=== PATIENT | female | born 1980 | race Caucasian/White ===

== ENCOUNTER 2017-05-07 12:34 | Emergency (ER) | payer OTHER ==
[~2017-05-07] VITALS: Ht 167.6 cm; Wt 105.0 kg
[~2017-05-07 12:34] MED LIST: CLON.1 PO; METH5SOL3 PO; PROM1SUP12 PR; PROM25TA5 PO
[2017-05-07 12:43] VITALS: BP 198/116; PULSE 99; RESP 16; TEMP 98.3; O2SAT 98
[2017-05-07 13:06] LABS: BILIRUBIN, URINE NEG (NEG); BLOOD, URINE MOD (NEG); GLUCOSE,URINE NEG (NEG); KETONE, URINE NEG (NEG); NITRITE,URINE NEG (NEG); PH, URINE 6.5 (5.0-8.5); URINE LEUKOCYTE ESTERASE NEG (NEG)
[2017-05-07] MEDS ORDERED: AMLO5TAB2 PO (13:09)
[2017-05-07] MEDS ORDERED: INDO50CA PO (13:09)
[2017-05-07] MEDS ORDERED: PROZ40CA PO (13:09)
[2017-05-07 13:12] LABS: URINE COLOR YELLOW (YELLW/STRAW)
[2017-05-07 13:13] LABS: HYALINE CAST, URINE 0-2 /lpf (RARE); MUCUS URINE OCC /lpf (OCC); TRANSITIONAL EPI CELLS, URINE 0-5 /hpf
[2017-05-07 13:14] LABS: AMORPHOUS SEDIMENT, URINE MOD
[2017-05-07] MEDS ORDERED: SODIUM CHLOR 0.9% 1000 ML INJ 1,000 ML IV SCH (13:14)
[2017-05-07] MEDS ORDERED: DICYCLOMINE HCL 20 MG/2 ML VIAL IM ONE (13:15)
[2017-05-07] MEDS ORDERED: SODIUM CHLORIDE 0.9% FLUSH 10 ML FLUSH IV FLUSH PRN (13:15)
[2017-05-07] MEDS ORDERED: ONDANSETRON HCL 4 MG/2 ML VIAL IVP ONE (13:15)
--- NOTE | 2017-05-07 13:23 | PD ---
HPI Chief Complaint: GI Complaint Time Seen by Provider: 12:49 Travel History International Travel<30 days: No Contact w/Intl Traveler<30days: No Traveled to known affect area: No History of Present Illness HPI 36 years old female complains of right low quadrant abdominal pain. Patient states that the pain started a week ago. Patient states that the pain is sharp pain localized to right lower quadrant of the abdomen. Patient denies pain radiation. Patient states that she has intermittent nausea vomiting and diarrhea. Patient states that she has black tarry stool for the past 2 days. Patient denies any fever chills. Patient states that she has several syncopal episodes for the past 2 days. Patient has history of PCOS. Patient was seen at [facility] days ago and had blood tests and pelvic ultrasound done. Patient was diagnosed with ovarian cyst. Patient was discharged home with prescription for Percocet. Patient states that she had persistent pain despite taking the Percocet. Patient also complained of increasing abdominal pain with urination and urinary frequency. Patient denies any vaginal discharge or bleeding. PFSH Past Medical History Depression: Yes Diminished Hearing: No Herniated Disk: Yes Hypertension: Yes Reproductive: Yes (POLYCYSTIC OVARIAN SYNDROME) ?: Unknown : 2 Para: 0 Miscarriage: 2 Past Surgical History Cholecystectomy: Yes Social History Alcohol Use: Yes (VERY RARELY) Tobacco Use: No Substance Use: No Allergies-Medications (Allergen,Severity, Reaction): Coded Allergies: aspirin (Unverified Allergy, Severe, VOMITING AND RASH, 05/07/17) ketorolac (Unverified Allergy, Severe, VOMITING AND RASH, 05/07/17) pentazocine (Unverified Allergy, Severe, HALLUCINATIONS, 05/07/17) tramadol (Unverified Allergy, Severe, VOMITING AND RASH, 05/07/17) Reported Meds & Prescriptions Reported Meds & Active Scripts Active Reported Indomethacin 50 Mg Cap 50 Mg PO TID Take with food, milk, or antacids to decrease stomach adverse effects. Amlodipine (Amlodipine Besylate) 5 Mg Tab 5 Mg PO DAILY Prozac (Fluoxetine HCl) 40 Mg Cap 40 Mg PO DAILY Review of Systems General / Constitutional: No: Fever Eyes: No: Visual changes HENT: No: Headaches Cardiovascular: No: Chest Pain or Discomfort Respiratory: No: Shortness of Breath Gastrointestinal: Positive: Nausea, Vomiting, Diarrhea, Abdominal Pain Genitourinary: No: Dysuria Musculoskeletal: No: Pain Skin: No Rash Neurologic: No: Weakness Psychiatric: No: Depression Endocrine: No: Polydipsia Hematologic/Lymphatic: No: Easy Bruising Physical Exam Narrative GENERAL: Well-nourished, well-developed patient. SKIN: Focused skin assessment warm/dry. HEAD: Normocephalic. EYES: No scleral icterus. No injection or drainage. NECK: Supple, trachea midline. No JVD or lymphadenopathy. CARDIOVASCULAR: Regular rate and rhythm without murmurs, gallops, or rubs. RESPIRATORY: Breath sounds equal bilaterally. No accessory muscle use. GASTROINTESTINAL: Abdomen soft, nondistended. Patient has moderate tenderness and palpation right lower quadrant of the abdomen. No rebound tenderness. No mass. MUSCULOSKELETAL: No cyanosis, or edema. BACK: Nontender without obvious deformity. No CVA tenderness. Neurologic exam normal. Data Data Last Documented VS Vital Signs Date Time Temp Pulse Resp B/P (MAP) Pulse Ox O2 Delivery O2 Flow Rate FiO2 05/07/17 13:55 95 Room Air 05/07/17 12:43 98.3 99 16 198/116 (143) Orders Orders Urinalysis - C+S If Indicated (05/07/17 12:45) Ed Urine Pregnancytest Poc (05/07/17 12:45) Complete Blood Count With Diff (05/07/17 13:14) Comprehensive Metabolic Panel (05/07/17 13:14) Lipase (05/07/17 13:14) Ct Abd/Pel W Iv Contrast(Rout) (05/07/17 13:14) Iv Access Insert/Monitor (05/07/17 13:14) Ecg Monitoring (05/07/17 13:14) Oximetry (05/07/17 13:14) Ondansetron Inj (Zofran Inj) (05/07/17 13:15) Sodium Chlor 0.9% 1000 Ml Inj (Ns 1000 M (05/07/17 13:14) Sodium Chloride 0.9% Flush (Ns Flush) (05/07/17 13:15) Dicyclomine Inj (Bentyl Inj) (05/07/17 13:15) Iohexol 350 Inj (Omnipaque 350 Inj) (05/07/17 14:22) Labs Laboratory Tests Test 05/07/17 12:50 05/07/17 13:20 Urine Collection Type CLEAN CATCH Urine Color YELLOW Urine Turbidity CLEAR Urine pH 6.5 Urine Specific [place] 1.025 Urine Protein NEG mg/dL Urine Glucose (UA) NEG mg/dL Urine Ketones NEG mg/dL Urine Occult Blood MOD Urine Nitrite NEG Urine Bilirubin NEG Urine Leukocyte Esterase NEG Urine Squamous Epithelial Cells 6-8 /hpf Urine Transitional Epithelial Cells 0-5 /hpf Urine Amorphous Sediment MOD Urine Hyaline Casts 0-2 /lpf Urine Mucus OCC /lpf Microscopic Urinalysis Comment CULT NOT INDICATED White Blood Count 5.8 TH/MM3 Red Blood Count 4.26 MIL/MM3 Hemoglobin 11.8 GM/DL Hematocrit 35.1 % Mean Corpuscular Volume 82.5 FL Mean Corpuscular Hemoglobin 27.8 PG Mean Corpuscular Hemoglobin Concent 33.7 % Red Cell Distribution Width 12.2 % Platelet Count 402 TH/MM3 Mean Platelet Volume 7.7 FL Neutrophils (%) (Auto) 77.9 % Lymphocytes (%) (Auto) 14.3 % Monocytes (%) (Auto) 4.5 % Eosinophils (%) (Auto) 0.9 % Basophils (%) (Auto) 2.4 % Neutrophils # (Auto) 4.5 TH/MM3 Lymphocytes # (Auto) 0.8 TH/MM3 Monocytes # (Auto) 0.3 TH/MM3 Eosinophils # (Auto) 0.1 TH/MM3 Basophils # (Auto) 0.1 TH/MM3 CBC Comment DIFF FINAL Differential Comment Blood Urea Nitrogen 19 MG/DL Creatinine 0.93 MG/DL Random Glucose 120 MG/DL Total Protein 8.9 GM/DL Albumin 3.9 GM/DL Calcium Level 9.3 MG/DL Alkaline Phosphatase 82 U/L Aspartate Amino Transf (AST/SGOT) 57 U/L Alanine Aminotransferase (ALT/SGPT) 55 U/L Total Bilirubin 0.5 MG/DL Sodium Level 136 MEQ/L Potassium Level 3.9 MEQ/L Chloride Level 102 MEQ/L Carbon Dioxide Level 23.7 MEQ/L Anion Gap 10 MEQ/L Estimat Glomerular Filtration Rate 68 ML/MIN Lipase 172 U/L [facility] Medical Decision Making Medical Screen Exam Complete: Yes Emergency Medical Condition: Yes Interpretation(s) 1414 p.m. CBC within normal limit. BUN 19. AST 57. ALT 55. UA is negative. [address] scan abdomen pelvis negative acute pathology. Differential Diagnosis Differential diagnosis including ovarian cyst, ovarian torsion, ectopic , colitis, appendicitis, UTI, pyelonephritis, nephrolithiasis. Narrative Course 36 years old female with right low quadrant abdominal pain. History of PCOS. Normal saline solution 1 25 cc an hour. Bentyl 20 mg IM. Zofran 4 mg IV. Diagnosis Primary Impression: Abdominal pain Qualified Codes: R10.31 - Right lower quadrant pain Patient Instructions: General Instructions Additional Instructions: Bentyl and Phenergan as directed. Follow-up with barrel dedenting machine operator specialist and airport control operator. Return if worse. Med/Other Pt SpecificInfo: Prescription(s) given Scripts Dicyclomine (Bentyl) 10 Mg Cap 10 MG PO TID Y for Bowel Management, #21 CAP 0 Refills Prov: Yoel Cho MD 05/07/17 Promethazine (Phenergan) 25 Mg Tablet 25 MG PO Q6H Y for NAUSEA OR VOMITING, #12 TAB 0 Refills Prov: Yoel Cho MD 05/07/17 Disposition: 01 DISCHARGE HOME Condition: Stable Yoel Cho MD May 07, 2017 13:23
[2017-05-07 13:38] LABS: AUTOMATED NEUTROPHIL # 4.5 TH/MM3 (1.8-7.7); BASOPHIL # 0.1 TH/MM3 (0-0.2); BASOPHIL % 2.4 % (0.0-2.0); EOSINOPHIL # 0.1 TH/MM3 (0-0.4); EOSINOPHIL % 0.9 % (0.0-4.0); HEMATOCRIT 35.1 % (35.0-46.0); HEMOGLOBIN 11.8 GM/DL (11.6-15.3); LYMPH % 14.3 % (9.0-44.0); LYMPHOCYTE # 0.8 TH/MM3 (1.0-4.8); MEAN CELL VOLUME 82.5 FL (80.0-100.0); MEAN CORPUSCULAR HEMOGLOBIN 27.8 PG (27.0-34.0); MEAN CORPUSCULAR HGB CONC 33.7 % (32.0-36.0); MEAN PLATELET VOLUME 7.7 FL (7.0-11.0); MONO % 4.5 % (0.0-8.0); MONOCYTE # 0.3 TH/MM3 (0-0.9); NEUT % 77.9 % (16.0-70.0); PLATELET COUNT 402 TH/MM3 (150-450); RED BLOOD COUNT 4.26 MIL/MM3 (4.00-5.30); RED CELL DISTRIBUTION WIDTH 12.2 % (11.6-17.2); WHITE BLOOD COUNT 5.8 TH/MM3 (4.0-11.0)
[2017-05-07 13:47] LABS: CHLORIDE 102 MEQ/L (98-107); SODIUM (NA) 136 MEQ/L (136-145)
[2017-05-07 13:50] LABS: CALCIUM 9.3 MG/DL (8.5-10.1)
[2017-05-07 13:51] LABS: ALBUMIN 3.9 GM/DL (3.4-5.0); BICARBONATE 23.7 MEQ/L (21.0-32.0); BLOOD UREA NITROGEN 19 MG/DL (7-18); GLUCOSE,RANDOM 120 MG/DL (74-106)
[2017-05-07 13:54] LABS: ALT (GPT) 55 U/L (10-53); AST (GOT) 57 U/L (15-37); CREATININE 0.93 MG/DL (0.50-1.00); GLOMERULAR FILTRATION RATE 68 ML/MIN (>89)
[2017-05-07 13:55] VITALS: O2SAT 95
[2017-05-07 13:55] LABS: TOTAL BILIRUBIN ADULT 0.5 MG/DL (0.2-1.0); TOTAL PROTEIN 8.9 GM/DL (6.4-8.2)
[2017-05-07 13:56] LABS: ALKALINE PHOSPHATASE 82 U/L (45-117)
[2017-05-07] MEDS ORDERED: IOHEXOL 350 MG/ML 10 ML VIAL (for RAD DIAG) IVCONTRAST ONE (14:22)
--- NOTE | 2017-05-07 14:34 | RADRPT ---
EXAM DATE/TIME: 05/07/2017 14:12 [facility] COMPARISON: CT ABDOMEN & PELVIS W CONTRAST, February 27, 2014, 21:59. INDICATIONS : Right lower abdomen pain IV CONTRAST: 100 cc Omnipaque 350 (iohexol) IV ORAL CONTRAST: No oral contrast ingested. RADIATION DOSE: 20.77 CTDIvol (mGy) ; Patient body habitus MEDICAL HISTORY : Hypertension. Polycystic ovarian syndrome. SURGICAL HISTORY : Rt Hip, labrial tear. ENCOUNTER: Initial ACUITY: 1 day PAIN SCALE: 6/10 LOCATION: Right lower quadrant TECHNIQUE: Volumetric scanning of the abdomen and pelvis was performed. Using automated exposure control and adjustment of the mA and/or kV according to patient size, radiation dose was kept as low as reasonably achievable to obtain optimal diagnostic quality images. DICOM format image data is av ailable electronically for review and comparison. FINDINGS: LOWER LUNGS: The visualized lower lungs are clear. LIVER: Homogeneous density without lesion. There is no dilation of the biliary tree was in place prior cholecystectomy SPLEEN: Normal size without lesion. PANCREAS: Within normal limits. KIDNEYS: Normal in size and shape. There is no stone or hydronephrosis. Stable bilateral low den sity lesions of the kidney cortex largest left kidney with 2.1 cm in size consistent with cysts ADRENAL GLANDS: Within normal limits. VASCULAR: There is no aortic aneurysm. BOWEL/MESENTERY: The stomach, small bowel, and colon demonstrate no acute abnormality. There is no free intraperitoneal air or fluid. What probably represents appendix is visualized to be normal wi th no inflammatory changes in the right lower quadrant. ABDOMINAL WALL: Within normal limits. RETROPERITONEUM: There is no lymphadenopathy. BLADDER: No wall thickening or mass. REPRODUCTIVE: Within normal limits. Bilateral ovaries visualize unchanged and normal INGUINAL: There is no lymphadenopathy or hernia. MUSCULOSKELETAL: Degenerative disc disease L5-S1 with air vacuum sign in protrusion left paracent ral into the anterior epidural space of air vacuum consistent with disc protrusion. CONCLUSION: Stable benign examination. Prior cholecystectomy. Bilateral renal cysts. Otherwise ne gordy Vance MD on May 07, 2017 at 14:26 Board Certified Radiologist. This report was verified electronically.
[2017-05-07] MEDS ORDERED: PROM25TA10 PO (14:45)
[2017-05-07] MEDS ORDERED: DICY10 PO (14:45)
[2017-05-07 14:59] VITALS: BP 178/86
== END 2017-05-07 15:00 | disposition home or self-care (01) ==
LOC: PHED 12:34
DX: R10.31 Right lower quadrant pain (principal); R19.7 Diarrhea, unspecified; R11.2 Nausea with vomiting, unspecified; E28.2 Polycystic ovarian syndrome; R55 Syncope and collapse; I10 Essential (primary) hypertension
CPT/HCPCS: 74177; 80053; 81001; 83690; 84703; 85025; 96361; 96372; 96374; 99284; J0500; J2405; J7030; Q9967

== ENCOUNTER 2017-07-08 06:04 | Emergency (ER) | payer OTHER ==
[~2017-07-08 06:04] MED LIST changes: +AMLO5TAB2 PO; -CLON.1 PO; +DICY10 PO; +INDO50CA PO; -METH5SOL3 PO; -PROM1SUP12 PR; +PROM25TA10 PO; -PROM25TA5 PO; +PROZ40CA PO
[2017-07-08 06:06] VITALS: BP 199/102; PULSE 115; RESP 16; TEMP 98.3; O2SAT 100
[2017-07-08] MEDS ORDERED: AMLO2.5T PO (06:45)
[2017-07-08] MEDS ORDERED: SODIUM CHLOR 0.9% 1000 ML INJ 1,000 ML IV SCH (07:11)
[2017-07-08] MEDS ORDERED: SODIUM CHLORIDE 0.9% FLUSH 10 ML FLUSH IV FLUSH PRN (07:15)
[2017-07-08] MEDS ORDERED: MORPHINE SULFATE 4 MG/ML INJ IV PUSH ONE (07:15)
[2017-07-08] MEDS ORDERED: ONDANSETRON HCL 4 MG/2 ML VIAL IVP ONE (07:15)
[2017-07-08 07:22] LABS: AMORPHOUS SEDIMENT, URINE RARE; BACTERIA, URINE RARE /hpf; BILIRUBIN, URINE NEG (NEG); BLOOD, URINE NEG (NEG); GLUCOSE,URINE TRACE mg/dL (NEG); KETONE, URINE NEG (NEG); MUCUS URINE FEW /lpf (OCC); NITRITE,URINE NEG (NEG); PH, URINE 7.5 (5.0-8.5); SQUAMOUS EPITHELIAL CELL URINE <1 /hpf (0-5); URINE COLOR LIGHT-YELLOW (YELLW/STRAW); URINE LEUKOCYTE ESTERASE NEG (NEG)
[2017-07-08 07:26] VITALS: RESP 18; O2SAT 97
--- NOTE | 2017-07-08 07:29 | PD ---
HPI Chief Complaint: Flank/Kidney Pain Time Seen by Provider: 07:05 Travel History International Travel<30 days: No Contact w/Intl Traveler<30days: No Traveled to known affect area: No History of Present Illness HPI Patient is a 37-year-old female who comes in complaining of abdominal pain that radiates to her right flank. She says the pain started 4 days ago. She reports nausea and vomiting. She denies fevers. She says she has pain in her bladder when she urinates and feels like she has to go more often. She says it feels similar to when she had a kidney stone in the past. She tried taking ibuprofen and Zofran at home without relief. Severity is mild to moderate. PFSH Past Medical History Depression: Yes Diminished Hearing: No Herniated Disk: Yes Hypertension: Yes Reproductive: Yes (POLYCYSTIC OVARIAN SYNDROME) ?: Not : 2 Para: 0 Miscarriage: 2 Past Surgical History Cholecystectomy: Yes Social History Alcohol Use: Yes (VERY RARELY) Tobacco Use: No Substance Use: No Allergies-Medications (Allergen,Severity, Reaction): Coded Allergies: aspirin (Unverified Allergy, Severe, VOMITING AND RASH, 05/07/17) ketorolac (Unverified Allergy, Severe, VOMITING AND RASH, 05/07/17) pentazocine (Unverified Allergy, Severe, HALLUCINATIONS, 05/07/17) tramadol (Unverified Allergy, Severe, VOMITING AND RASH, 05/07/17) Reported Meds & Prescriptions Reported Meds & Active Scripts Active Reported Amlodipine (Amlodipine Besylate) 2.5 Mg Tab 2.5 Mg PO BID Review of Systems Except as stated in HPI: all other systems reviewed are Neg General / Constitutional: No: Fever, Chills HENT: No: Headaches, Lightheadedness Cardiovascular: No: Chest Pain or Discomfort Respiratory: No: Shortness of Breath Gastrointestinal: Positive: Nausea, Vomiting, Abdominal Pain Genitourinary: Positive: Urgency, Frequency, Flank Pain Skin: No Rash, No Change in Pigmentation Neurologic: No: Weakness, Dizziness Physical Exam Narrative GENERAL: Awake and alert, in no acute distress. SKIN: Focused skin assessment warm/dry. HEAD: Atraumatic. Normocephalic. EYES: Pupils equal and round. No scleral icterus. ENT: Mucous membranes pink and moist. NECK: Trachea midline. No JVD. CARDIOVASCULAR: Regular rate and rhythm. No murmur appreciated. RESPIRATORY: No accessory muscle use. Clear to auscultation. Breath sounds equal bilaterally. GASTROINTESTINAL: Abdomen soft, nondistended. Right CVA tenderness. Tender to palpation of he suprapubic area as well as the RLQ. No rebound or guarding. MUSCULOSKELETAL: No obvious deformities. No clubbing. No cyanosis. No edema. NEUROLOGICAL: Awake and alert. No obvious cranial nerve deficits. Motor grossly within normal limits. Normal speech. PSYCHIATRIC: Appropriate mood and affect; insight and judgment normal. Data Data Last Documented VS Vital Signs Date Time Temp Pulse Resp B/P (MAP) Pulse Ox O2 Delivery O2 Flow Rate FiO2 07/08/17 09:01 97 18 167/76 (106) 99 07/08/17 07:26 Room Air 07/08/17 06:06 98.3 Orders Orders Urinalysis - C+S If Indicated (07/08/17 06:26) Complete Blood Count With Diff (07/08/17 07:11) Comprehensive Metabolic Panel (07/08/17 07:11) Lipase (07/08/17 07:11) Prothrombin Time / Inr (Pt) (07/08/17 07:11) Act Partial Throm Time (Ptt) (07/08/17 07:11) Ct Abd/Pel W/O Iv Contrast (07/08/17 07:11) Iv Access Insert/Monitor (07/08/17 07:11) Ecg Monitoring (07/08/17 07:11) Oximetry (07/08/17 07:11) Ondansetron Inj (Zofran Inj) (07/08/17 07:15) Sodium Chlor 0.9% 1000 Ml Inj (Ns 1000 M (07/08/17 07:11) Sodium Chloride 0.9% Flush (Ns Flush) (07/08/17 07:15) Ed Urine Pregnancytest Poc (07/08/17 07:11) Morphine Inj (Morphine Inj) (07/08/17 07:15) Acetamin-Hydrocod 325-5 Mg ([place] 5-325 (07/08/17 08:45) Metoclopramide Inj (Reglan Inj) (07/08/17 08:45) Us Pelvis Comp Call Center Recruiter/Non-Preg (07/08/17 ) Labs Laboratory Tests Test 07/08/17 06:45 07/08/17 07:21 Urine Color LIGHT-YELLOW Urine Turbidity CLEAR Urine pH 7.5 Urine Specific [place] 1.010 Urine Protein NEG mg/dL Urine Glucose (UA) TRACE mg/dL Urine Ketones NEG mg/dL Urine Occult Blood NEG Urine Nitrite NEG Urine Bilirubin NEG Urine Urobilinogen LESS THAN 2.0 MG/DL Urine Leukocyte Esterase NEG Urine RBC 2 /hpf Urine Squamous Epithelial Cells <1 /hpf Urine Amorphous Sediment RARE Urine Bacteria RARE /hpf Urine Mucus FEW /lpf Microscopic Urinalysis Comment CULT NOT INDICATED White Blood Count 7.9 TH/MM3 Red Blood Count 4.34 MIL/MM3 Hemoglobin 11.7 GM/DL Hematocrit 35.3 % Mean Corpuscular Volume 81.2 FL Mean Corpuscular Hemoglobin 27.0 PG Mean Corpuscular Hemoglobin Concent 33.2 % Red Cell Distribution Width 13.6 % Platelet Count 317 TH/MM3 Mean Platelet Volume 7.2 FL Neutrophils (%) (Auto) 78.5 % Lymphocytes (%) (Auto) 13.8 % Monocytes (%) (Auto) 6.4 % Eosinophils (%) (Auto) 0.5 % Basophils (%) (Auto) 0.8 % Neutrophils # (Auto) 6.2 TH/MM3 Lymphocytes # (Auto) 1.1 TH/MM3 Monocytes # (Auto) 0.5 TH/MM3 Eosinophils # (Auto) 0.0 TH/MM3 Basophils # (Auto) 0.1 TH/MM3 CBC Comment DIFF FINAL Differential Comment Prothrombin Time 9.4 SEC Prothromb Time International Ratio 0.9 RATIO Activated Partial Thromboplast Time 24.4 SEC Blood Urea Nitrogen 10 MG/DL Creatinine 0.74 MG/DL Random Glucose 145 MG/DL Total Protein 8.5 GM/DL Albumin 3.7 GM/DL Calcium Level 9.1 MG/DL Alkaline Phosphatase 84 U/L Aspartate Amino Transf (AST/SGOT) 25 U/L Alanine Aminotransferase (ALT/SGPT) 50 U/L Total Bilirubin 0.2 MG/DL Sodium Level 142 MEQ/L Potassium Level 3.7 MEQ/L Chloride Level 111 MEQ/L Carbon Dioxide Level 22.7 MEQ/L Anion Gap 8 MEQ/L Estimat Glomerular Filtration Rate 88 ML/MIN Lipase 159 U/L [facility] Medical Decision Making Medical Screen Exam Complete: Yes Emergency Medical Condition: Yes Differential Diagnosis Renal stone versus UTI versus pyelonephritis versus ovarian cyst Narrative Course Patient is a 37-year-old female who comes in complaining of abdominal pain that radiates into her right flank. Exam shows right CVA tenderness as well as lower abdominal tenderness. IV established, labs sent. Labs show no acute abnormalities. Patient given IV fluids, Toradol, Zofran. CT abdomen and pelvis performed shows a small, nonobstructing stones and a right cystic lesion on the right ovary. Last 24 hours Impressions Abdomen/Pelvis CT 07/08/17 0711 Signed Impressions: Service Date/Time: Monday, July 08, 2017 07:29 - CONCLUSION: Tiny stones both kidneys. Stones this small and easily be missed in the distal ureter. There is no perinephric stranding to suggest obstruction. 2.8 cm predominantly cystic mass right adnexa without free fluid. Ravinder Hunt MD FACR Patient continued to have pain and nausea, given Frederica and Reglan. She is offered an ultrasound to further examine the cyst, however she would rather follow-up with her processor helper. Given prescriptions for Zofran and Frederica. Advised follow-up. Advised return to the ED as needed for any worsening symptoms. Diagnosis Primary Impression: Renal stones Additional Impression: Ovarian cyst Qualified Codes: N83.201 - Unspecified ovarian cyst, right side Patient Instructions: General Instructions, Kidney Stones (ED), Ovarian Cyst ( ED) Additional Instructions: Follow-up with your processor helper. Take pain medicine as needed. Drink plenty of fluids. Return to the ED as needed for any worsening symptoms. Scripts Hydrocodone-Acetaminophen ([place]) 5 Mg-325 Mg Tab 1 TAB PO Q6H Y for PAIN, #10 TAB 0 Refills Prov: Alejandra Howell MD 07/08/17 Disposition: 01 DISCHARGE HOME Condition: Stable Alejandra Howell MD Jul 08, 2017 07:29
[2017-07-08 07:30] LABS: AUTOMATED NEUTROPHIL # 6.2 TH/MM3 (1.8-7.7); BASOPHIL # 0.1 TH/MM3 (0-0.2); BASOPHIL % 0.8 % (0.0-2.0); EOSINOPHIL % 0.5 % (0.0-4.0); HEMATOCRIT 35.3 % (35.0-46.0); HEMOGLOBIN 11.7 GM/DL (11.6-15.3); LYMPH % 13.8 % (9.0-44.0); LYMPHOCYTE # 1.1 TH/MM3 (1.0-4.8); MEAN CELL VOLUME 81.2 FL (80.0-100.0); MEAN CORPUSCULAR HGB CONC 33.2 % (32.0-36.0); MEAN PLATELET VOLUME 7.2 FL (7.0-11.0); MONO % 6.4 % (0.0-8.0); MONOCYTE # 0.5 TH/MM3 (0-0.9); NEUT % 78.5 % (16.0-70.0); PLATELET COUNT 317 TH/MM3 (150-450); RED BLOOD COUNT 4.34 MIL/MM3 (4.00-5.30); RED CELL DISTRIBUTION WIDTH 13.6 % (11.6-17.2); WHITE BLOOD COUNT 7.9 TH/MM3 (4.0-11.0)
[2017-07-08 07:39] LABS: INTERNATIONAL NORMALIZED RATIO 0.9 RATIO; PROTHROMBIN TIME - PATIENT 9.4 SEC (9.8-11.6)
[2017-07-08 07:47] LABS: ALBUMIN 3.7 GM/DL (3.4-5.0); ALT (GPT) 50 U/L (10-53); AST (GOT) 25 U/L (15-37); BICARBONATE 22.7 MEQ/L (21.0-32.0); BLOOD UREA NITROGEN 10 MG/DL (7-18); CALCIUM 9.1 MG/DL (8.5-10.1); CHLORIDE 111 MEQ/L (98-107); CREATININE 0.74 MG/DL (0.50-1.00); GLOMERULAR FILTRATION RATE 88 ML/MIN (>89); GLUCOSE,RANDOM 145 MG/DL (74-106); SODIUM (NA) 142 MEQ/L (136-145)
--- NOTE | 2017-07-08 07:47 | RADRPT ---
EXAM DATE/TIME: 07/08/2017 07:29 [facility] COMPARISON: No previous studies available for comparison. INDICATIONS : Right sided flank pain. ORAL CONTRAST: Partial prescribed oral contrast ingested. RADIATION DOSE: 29.15 CTDIvol (mGy) MEDICAL HISTORY : Renal calculi. SURGICAL HISTORY : Colon resection. ENCOUNTER: Initial ACUITY: 1 day PAIN SCALE: 6/10 LOCATION: Right upper quadrant TECHNIQUE: Volumetric scanning of the abdomen and pelvis was performed. Using automated exposure control and ad justment of the mA and/or kV according to patient size, radiation dose was kept as low as reasonably achievable to obtain optimal diagnostic quality images. DICOM format image data is available electro nically for review and comparison. FINDINGS: Lower lungs are clear. Portion of the liver and spleen visualized are unremarkable. There are surgical clips in the gallbla dder fossa The adrenal glands appear normal 2 less than 1 mm stones right kidney without perinephric stranding. No calcifications along the cour se of the right ureter. 1 mm stone left kidney. No calcifications along the left ureter 2.8 cm predominantly cystic mass right adnexa. There is no free fluid. Left adnexal region appears normal Review of bone windows reveals only mild degenerative changes. CONCLUSION: Tiny stones both kidneys. Stones this small and easily be missed in the distal urete r. There is no perinephric stranding to suggest obstruction. 2.8 cm predominantly cystic mass right adnexa without free fluid. Ravinder Hunt MD FACR on July 08, 2017 at 7:41 Board Certified Radiologist. This report was verified electronically.
[2017-07-08 07:50] LABS: ALKALINE PHOSPHATASE 84 U/L (45-117); TOTAL BILIRUBIN ADULT 0.2 MG/DL (0.2-1.0); TOTAL PROTEIN 8.5 GM/DL (6.4-8.2)
[2017-07-08] MEDS ORDERED: METOCLOPRAMIDE INJ 10 MG in SODIUM CHLORIDE 0.9% INJ 50 ML IV ONE (08:45)
[2017-07-08] MEDS ORDERED: ACETAMINOPHEN/HYDROcodone 325 MG/5 MG TAB PO ONE (08:45)
[2017-07-08 09:01] VITALS: BP 167/76; PULSE 97; RESP 18; O2SAT 99
[2017-07-08] MEDS ORDERED: NORC5TAB PO (09:07)
== END 2017-07-08 09:44 | disposition home or self-care (01) ==
LOC: NEPE 06:04
DX: N20.0 Calculus of kidney (principal); N83.201 Unspecified ovarian cyst, right side; I10 Essential (primary) hypertension
CPT/HCPCS: 74176; 80053; 81001; 83690; 84703; 85025; 85610; 85730; 96361; 96374; 96375; 99284; J2270; J2405; J2765; J7030

== ENCOUNTER 2017-07-11 04:03 | Emergency (ER) | payer OTHER ==
[~2017-07-11 04:03] MED LIST changes: +AMLO2.5T PO; -AMLO5TAB2 PO; -DICY10 PO; -INDO50CA PO; +NORC5TAB PO; -PROM25TA10 PO; -PROZ40CA PO
[2017-07-11 04:06] VITALS: BP 208/123; PULSE 100; RESP 18; TEMP 97.5; O2SAT 99
[2017-07-11 04:21] VITALS: BP 199/98; PULSE 105; RESP 20; O2SAT 98
[2017-07-11] MEDS ORDERED: SODIUM CHLOR 0.9% 1000 ML INJ 1,000 ML IV ONE (04:43)
[2017-07-11] MEDS ORDERED: diphenhydrAMINE HCL 50 MG/ML VIAL IV PUSH ONE (04:45)
[2017-07-11] MEDS ORDERED: PROCHLORPERAZINE INJ 10 MG/2 ML VIAL IV PUSH ONE (04:45)
[2017-07-11 04:55] VITALS: BP 175/83; PULSE 104; RESP 18; O2SAT 99
[2017-07-11 05:12] LABS: BACTERIA, URINE RARE /hpf; BILIRUBIN, URINE NEG (NEG); BLOOD, URINE MOD (NEG); GLUCOSE,URINE NEG (NEG); KETONE, URINE NEG (NEG); NITRITE,URINE NEG (NEG); SQUAMOUS EPITHELIAL CELL URINE 7 /hpf (0-5); TRANSITIONAL EPI CELLS, URINE <1 /hpf; URINE COLOR LIGHT-YELLOW (YELLW/STRAW); URINE LEUKOCYTE ESTERASE NEG (NEG)
[2017-07-11 05:15] LABS: AUTOMATED NEUTROPHIL # 4.5 TH/MM3 (1.8-7.7); BASOPHIL % 0.8 % (0.0-2.0); EOSINOPHIL # 0.1 TH/MM3 (0-0.4); EOSINOPHIL % 0.9 % (0.0-4.0); HEMATOCRIT 33.9 % (35.0-46.0); HEMOGLOBIN 11.3 GM/DL (11.6-15.3); LYMPH % 21.2 % (9.0-44.0); LYMPHOCYTE # 1.4 TH/MM3 (1.0-4.8); MEAN CELL VOLUME 81.8 FL (80.0-100.0); MEAN CORPUSCULAR HEMOGLOBIN 27.3 PG (27.0-34.0); MEAN CORPUSCULAR HGB CONC 33.4 % (32.0-36.0); MEAN PLATELET VOLUME 7.1 FL (7.0-11.0); MONO % 7.2 % (0.0-8.0); MONOCYTE # 0.5 TH/MM3 (0-0.9); NEUT % 69.9 % (16.0-70.0); PLATELET COUNT 289 TH/MM3 (150-450); RED BLOOD COUNT 4.14 MIL/MM3 (4.00-5.30); RED CELL DISTRIBUTION WIDTH 13.8 % (11.6-17.2); WHITE BLOOD COUNT 6.4 TH/MM3 (4.0-11.0)
[2017-07-11 05:42] LABS: BICARBONATE 24.6 MEQ/L (21.0-32.0); CALCIUM 9.1 MG/DL (8.5-10.1); CREATININE 0.75 MG/DL (0.50-1.00)
--- NOTE | 2017-07-11 05:47 | RADRPT ---
EXAM DATE/TIME: 07/11/2017 04:57 [facility] COMPARISON: CT ABDOMEN & PELVIS W/O CONTRAST, July 08, 2017, 7:29. INDICATIONS : Pelvic pain. MEDICAL HISTORY : Hypertension. . Herniated disc. Depression. SURGICAL HISTORY : Cholecystectomy. Right hip surgery. ENCOUNTER: Initial ACUITY: 4-6 days PAIN SCORE: 7/10 LOCATION: Bilateral pelvis MEASUREMENTS: UTERUS: 7.3 x 6.7 x 4.7 cm ENDOMETRIAL STRIPE: 7 mm RIGHT OVARY: 4.1 x 2.4 x 2.2 cm LEFT OVARY: 2.4 x 1.7 x 1.9 cm FINDINGS: UTERUS: The myometrium has homogeneous echotexture without mass. RIGHT OVARY: Blood flow demonstrated. 22 mm cyst. Subcentimeter follicles. LEFT OVARY: Blood flow demonstrated. Subcentimeter follicles. MISCELLANEOUS: No free fluid. CONCLUSION: Essentially normal for a patient this age. No torsion. Subcentimeter follicles of both ovaries and a slightly more dominant but simple, physiologic appearing cyst of the right ovary. Raghav Bright MD on July 11, 2017 at 5:44 Board Certified Radiologist. This report was verified electronically.
--- NOTE | 2017-07-11 05:50 | PD ---
HPI . Abdominal pain Chief Complaint: Abdominal Pain Time Seen by Provider: 04:33 Travel History International Travel<30 days: No Contact w/Intl Traveler<30days: No Traveled to known affect area: No History of Present Illness HPI Patient presents complaining with abdominal pain. She states that she has a right ovarian cyst and that it has been hurting for about the last week. Pain is constant and is getting progressively worse. She describes an aching/ throbbing pain which she rates 8/10. Her pain is associated with nausea and vomiting. The patient reports that she was here for this a few days ago and had a CT that showed the cyst. She states that ultrasound was offered but that she declined. 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 She states that her pockets and pieces necktie operator is out of town so she has not been able to follow-up as planned. She now comes in reporting worsening rather than improving pain. PFSH Past Medical History Depression: Yes Diminished Hearing: No Herniated Disk: Yes Hypertension: Yes Reproductive: Yes (POLYCYSTIC OVARIAN SYNDROME) Immunizations Current: Yes ?: Not : 2 Para: 0 Miscarriage: 2 Past Surgical History Cholecystectomy: Yes Social History Alcohol Use: Yes (VERY RARELY) Tobacco Use: No Substance Use: No Allergies-Medications (Allergen,Severity, Reaction): Coded Allergies: aspirin (Unverified Allergy, Severe, VOMITING AND RASH, 07/11/17) ketorolac (Unverified Allergy, Severe, VOMITING AND RASH, 07/11/17) pentazocine (Unverified Allergy, Severe, HALLUCINATIONS, 07/11/17) tramadol (Unverified Allergy, Severe, VOMITING AND RASH, 07/11/17) Reported Meds & Prescriptions Reported Meds & Active Scripts Active [place] (Hydrocodone-Acetaminophen) 5 Mg-325 Mg Tab 1 Tab PO Q6H PRN Reported Amlodipine (Amlodipine Besylate) 2.5 Mg Tab 2.5 Mg PO BID Review of Systems Except as stated in HPI: all other systems reviewed are Neg General / Constitutional: No: Fever, Chills Gastrointestinal: Positive: Nausea, Vomiting, Abdominal Pain Genitourinary: No: Urgency, Frequency, Dysuria Physical Exam Narrative GENERAL: Awake and alert. SKIN: warm/dry. HEAD: Normocephalic. Atraumatic. EYES: Pupils equal and round. No scleral icterus. No injection or drainage. ENT: No nasal bleeding or discharge. Mucous membranes pink and moist. NECK: Trachea midline. Full range of motion without pain.. CARDIOVASCULAR: Regular rate and rhythm. RESPIRATORY: No accessory muscle use. Clear to auscultation. Breath sounds equal bilaterally. GASTROINTESTINAL: Abdomen soft. Right-sided tenderness. Bowel sounds present. Nondistended. No CVA tenderness. MUSCULOSKELETAL: No obvious deformities. NEUROLOGICAL: Awake and alert. No obvious cranial nerve deficits. Motor grossly within normal limits. Normal speech. PSYCHIATRIC: Appropriate mood and affect; insight and judgment normal. Data Data Last Documented VS Vital Signs Date Time Temp Pulse Resp B/P (MAP) Pulse Ox O2 Delivery O2 Flow Rate FiO2 07/11/17 06:37 07/11/17 04:55 104 18 99 Room Air 07/11/17 04:06 97.5 Orders Orders Complete Blood Count With Diff (07/11/17 04:43) Basic Metabolic Panel (Bmp) (07/11/17 04:43) Gc And Chlamydia Pcr (07/11/17 04:43) Urinalysis - C+S If Indicated (07/11/17 04:43) Iv Access Insert/Monitor (07/11/17 04:43) Sodium Chlor 0.9% 1000 Ml Inj (Ns 1000 M (07/11/17 04:43) Ed Urine Pregnancytest Poc (07/11/17 04:43) Diphenhydramine Inj (Benadryl Inj) (07/11/17 04:45) Prochlorperazine Inj (Compazine Inj) (07/11/17 04:45) Us Pelvis Comp W Dop Transvag (07/11/17 ) Drug Screen, Random Urine (07/11/17 05:40) Ed Discharge Order (07/11/17 06:37) Labs Laboratory Tests Test 07/11/17 04:35 07/11/17 04:55 White Blood Count 6.4 TH/MM3 Red Blood Count 4.14 MIL/MM3 Hemoglobin 11.3 GM/DL Hematocrit 33.9 % Mean Corpuscular Volume 81.8 FL Mean Corpuscular Hemoglobin 27.3 PG Mean Corpuscular Hemoglobin Concent 33.4 % Red Cell Distribution Width 13.8 % Platelet Count 289 TH/MM3 Mean Platelet Volume 7.1 FL Neutrophils (%) (Auto) 69.9 % Lymphocytes (%) (Auto) 21.2 % Monocytes (%) (Auto) 7.2 % Eosinophils (%) (Auto) 0.9 % Basophils (%) (Auto) 0.8 % Neutrophils # (Auto) 4.5 TH/MM3 Lymphocytes # (Auto) 1.4 TH/MM3 Monocytes # (Auto) 0.5 TH/MM3 Eosinophils # (Auto) 0.1 TH/MM3 Basophils # (Auto) 0.0 TH/MM3 CBC Comment DIFF FINAL Differential Comment Blood Urea Nitrogen 14 MG/DL Creatinine 0.75 MG/DL Random Glucose 146 MG/DL Calcium Level 9.1 MG/DL Sodium Level 140 MEQ/L Potassium Level 3.6 MEQ/L Chloride Level 109 MEQ/L Carbon Dioxide Level 24.6 MEQ/L Anion Gap 6 MEQ/L Estimat Glomerular Filtration Rate 87 ML/MIN Urine Color LIGHT-YELLOW Urine Turbidity HAZY Urine pH 7.0 Urine Specific [place] 1.011 Urine Protein NEG mg/dL Urine Glucose (UA) NEG mg/dL Urine Ketones NEG mg/dL Urine Occult Blood MOD Urine Nitrite NEG Urine Bilirubin NEG Urine Urobilinogen LESS THAN 2.0 MG/DL Urine Leukocyte Esterase NEG Urine RBC 8 /hpf Urine WBC LESS THAN 1 /hpf Urine Squamous Epithelial Cells 7 /hpf Urine Transitional Epithelial Cells <1 /hpf Urine Bacteria RARE /hpf Microscopic Urinalysis Comment CULT NOT INDICATED Urine Opiates Screen NEG Urine Barbiturates Screen NEG Urine Amphetamines Screen NEG Urine Benzodiazepines Screen NEG Urine Cocaine Screen NEG Urine Cannabinoids Screen NEG MDM Medical Decision Making Medical Screen Exam Complete: Yes Emergency Medical Condition: Yes Medical Record Reviewed: Yes (She was here on 07/[address] that showed some insignificant kidney stones bilaterally as well as the right ovarian cyst. She was discharged with a prescription for [place].) Differential Diagnosis Differential diagnosis of pelvic pain includes but is not limited to UTI, PID, ectopic , spontaneous AB, constipation, viral illness Narrative Course This patient presents stating that she has right-sided pelvic pain related to an ovarian cyst. Ultrasound has been recommended but has not yet been performed. I have repeated her CBC, BMP, urinalysis and test. I added a GC chlamydial DNA probe to her urine. An IV was started and she was given a liter of IV fluid along with IV Compazine and Benadryl for her nausea and vomiting. On review of her records, she was noted to have had a previous visit related to methadone withdrawal. Therefore, I am reluctant to give her opiates. She also reports allergies to nonsteroidal anti-inflammatory agents and tramadol. test is negative. CBC & BMP Diagram 07/11/17 04:35 Calcium Level 9.1 UA is negative for infection. US: Essentially normal for a patient this age. No torsion. Subcentimeter follicles of both ovaries and a slightly more dominant but simple, physiologic appearing cyst of the right ovary. I have queried [facility]. She has received 25 separate opiate prescriptions from many different providers in the last 12 months. Her tox screen here is negative. I did confront her about her multiple prescriptions from multiple providers. She states that she is getting most of these prescriptions from different emergency departments. I have told the patient that this is a concerning habit that she should probably discuss with her primary care provider. Diagnosis Primary Impression: Pelvic pain in female Additional Impression: opiate use disorder Patient Instructions: General Instructions, Pelvic Pain (ED) Disposition: 01 DISCHARGE HOME Condition: Stable Rosi Dennison MD Jul 11, 2017 05:50
== END 2017-07-11 06:49 | disposition home or self-care (01) ==
LOC: NEPE 04:03
DX: R10.2 Pelvic and perineal pain (principal); F11.90 Opioid use, unspecified, uncomplicated; N83.201 Unspecified ovarian cyst, right side; I10 Essential (primary) hypertension; Z79.899 Other long term (current) drug therapy
CPT/HCPCS: 76830; 76856; 80048; 80307; 81001; 84703; 85025; 87491; 87591; 93975; 96361; 96374; 96375; 99284; J0780; J1200; J7030